=== PATIENT | female | born 1990 | race Caucasian/White ===

== ENCOUNTER 2023-08-21 18:14 | Emergency (ER) | payer OTHER ==
[2023-08-21] MEDS ORDERED: Loratadine 10 MG TAB ONE (18:46)
== END 2023-08-21 18:45 | disposition home or self-care (01) ==
LOC: MADERS 18:14
DX: L25.9 Unspecified contact dermatitis, unspecified cause (principal)

== ENCOUNTER 2024-03-06 18:17 | Emergency (ER) | payer OTHER ==
[2024-03-06] MEDS ORDERED: Orphenadrine Citrate 60 MG/2 ML VIAL ONE (19:26)
[2024-03-06] MEDS ORDERED: Acetaminophen 500 MG TAB ONE (19:26)
== END 2024-03-06 19:48 | disposition home or self-care (01) ==
LOC: MADERS 18:17
DX: B34.9 Viral infection, unspecified (principal); R50.9 Fever, unspecified; F17.290 Nicotine dependence, other tobacco product, uncomplicated
CPT/HCPCS: 96372; 99283; J2360

== ENCOUNTER 2025-06-05 08:53 | Emergency (ER) | payer OTHER ==
[2025-06-05] MEDS ORDERED: Ketorolac Tromethamine 30 MG (1 mL) VIAL ONE (09:40)
== END 2025-06-05 10:00 ==
LOC: MADERS 08:53
DX: J06.9 Acute upper respiratory infection, unspecified (principal); B97.89 Other viral agents as the cause of diseases classified elsewhere; F17.290 Nicotine dependence, other tobacco product, uncomplicated
CPT/HCPCS: 87081; 87428; 87430; J1885